=== PATIENT | male | born 1960 | race Caucasian/White ===

== ENCOUNTER 2019-02-03 14:58 | Inpatient (IN) | payer OTHER, SELFPAY ==
[2019-02-03 15:47] LABS: #Basophils 0.1 thou/uL (0.0-0.2); #Eosinphils 0.1 thou/uL (0.0-0.7); #Lymphocytes 2.2 thou/uL (1.20-3.40); #Monocytes 0.8 thou/uL (0.11-0.59); #Neutrophils 5.6 thou/uL (1.40-6.50); %Basophils 1.1 % (0.0-1.0); %Eosinophils 0.6 % (0.0-10.0); %Lymphocytes 24.9 % (21.0-51.0); %Monocytes 9.4 % (0.0-10.0); %Neutrophils 63.9 % (42.0-75.0); Hemoglobin 15.9 g/dL (14.0-18.0); Mean Corpuscular HGB CONC 34.9 g/dL (32.0-36.0); Mean Corpuscular Hemoglobin 32.8 pg (27.0-31.0); Mean Corpuscular Volume 94.1 fL (78.0-98.0); Mean Platelet Volume 7.4 fL (7.4-10.4); Platelet Count 244 thou/uL (130-400); RBC Distribution Width 10.8 % (11.5-14.5); Red Blood Cell (RBC) Count 4.84 mill/uL (4.70-6.10); White Blood Cell (WBC) Count 8.7 thou/uL (4.8-10.8)
[2019-02-03] MEDS ORDERED: Ondansetron PF 4 MG/2 ML Vial ONE ×3 (15:51→19:32)
[2019-02-03 16:06] LABS: ALT (SGPT) 48 U/L (8-55); AST (SGOT) 25 U/L (5-34); Albumin 4.3 g/dL (3.5-5.0); Alkaline Phosphatase 56 U/L (40-110); Anion Gap 16 mmol/L (10-20); BUN (Urea Nitrogen) 12 mg/dL (8.4-25.7); Bilirubin, Total 0.9 mg/dL (0.2-1.2); Calc. Creatinine Clearance 0 mL/min (70-130); Calcium 9.1 mg/dL (7.8-10.44); Carbon Dioxide 20 mmol/L (22-29); Chloride 103 mmol/L (98-107); Estimated GFR-MDRD 87; Globulin 2.6 g/dL (2.4-3.5); Glucose 90 mg/dL (70-105); Lipase 17 U/L (8-78); Potassium 4.5 mmol/L (3.5-5.1); Protein, Total 6.9 g/dL (6.0-8.3); Sodium 134 mmol/L (136-145)
[2019-02-03] MEDS ORDERED: Iopamidol-370 76% 500 ML 1 ML ONE (16:35)
--- NOTE | 2019-02-03 18:41 | CT ---
CT ABDOMEN AND PELVIS WITH IV CONTRAST: HISTORY: Abdominal pain FINDINGS: There are mild dependent changes in the lung bases. No free air is seen. There is a small amount of f ree fluid in the pelvis. No lymphadenopathy seen. There are vascular calcifications without evidence of aneurysmal dilatation of the abdominal aorta. No calcified gallstones are seen. There are degenerative changes in the spine. There is a 5 mm low-density lesion in the right lobe of the liver, too small to characterize. The spl een, pancreas, adrenal glands and kidneys are normal. There is dilatation of the small bowel loops. There is fecal material, air and fluid in the colon. Th ere is sigmoid diverticulosis. A small hiatal hernia is present. IMPRESSION: 1. Findings are suspicious for small bowel obstruction. 2. Small hiatal hernia 3. Sigmoid diverticulosis 4. Small amount of free fluid in the pelvis 5. Small low-density lesion in the right lobe of the liver.
[2019-02-03] MEDS ORDERED: Benzocaine 20% Spray 60 ML CAN ONE (18:58)
[2019-02-03] MEDS ORDERED: hydrALAZINE 20 MG/ML VIAL SLOW IVP PRN (19:52)
--- NOTE | 2019-02-03 20:01 | RAD ---
Abdomen one view HISTORY: Nasogastric tube placement FINDINGS: The tip of the nasogastric tube is in the projection of the GE junction just below the diaphragm. Air is noted in loops of small and large bowel.
[2019-02-03] MEDS ORDERED: Fentanyl 100 MCG/2 ML VIAL ONE (20:42)
[2019-02-03] MEDS: Multivitamins, Adult 10 ML, Folic Acid 1 MG, Thiamine HCl 100 MG in Dextrose 5 %-0.45 %... IV SCH (22:35)
[2019-02-03] MEDS: Dextrose 5 % And 0.9 % NaCl 1,000 ML IV SCH (22:35)
[2019-02-03] MEDS: Enoxaparin Sodium 40 MG/0.4 ML SYRINGE SC SCH (22:39)
[2019-02-03 23:18] VITALS: BMI 22.2
--- NOTE | 2019-02-04 01:10 | HP ---
HISTORY OF PRESENT ILLNESS: Solo Cortes is a 58-year-old male who works in [employer], presents with a 2-3 week history of abdominal discomfort. The last few days he has been nauseated, but not vomiting. He presents to the emergency room. CAT scan reveals dilated small bowel loops with air-fluid levels, small hiatal hernia, sigmoid diverticulosis. They are suggesting a partial bowel obstruction without definite transition zone. The patient dropped a bumper on his abdomen 2 weeks ago causing some bruising, he attributes this to this problem. The patient denies any prior history of colon cancer, and he has never had a colonoscopy. Tobacco 2-3 packs per day. Alcohol 1-6 packs a day, sometimes more on weekends. MEDICATIONS: None routinely. PAST SURGICAL HISTORY: Noncontributory. PAST MEDICAL HISTORY: Noncontributory. SOCIAL HISTORY: The patient is single, has been and 3 times. PHYSICAL EXAMINATION: VITAL SIGNS: Blood pressure 130/68, respiratory rate 18. HEAD, EARS, EYES, NOSE, AND THROAT: Unremarkable. LUNGS: Clear to auscultation. No wheezing. CARDIAC: Regular rate and rhythm without murmur or gallop. ABDOMEN: Soft, mildly distended, mildly tympanitic. No guarding. No rebound. No hernia masses. No groin hernias. EXTREMITIES: Unremarkable. LABORATORY DATA: Sodium 134, potassium 4.5, carbon dioxide 20, bilirubin 0.9. Liver function tests normal. White count 8.7, hemoglobin 15.9. ASSESSMENT AND PLAN: 1. No prior history of abdominal surgeries with distended small bowel. We will place an NG tube tonight. We will check x-rays tomorrow and small-bowel follow-through and further recommendations pending clinical course. 2. Tobacco abuse. 3. Alcoholism. Job ID: [id number]
[2019-02-04 04:09] LABS: #Lymphocytes 1.8 thou/uL (1.20-3.40); #Monocytes 0.9 thou/uL (0.11-0.59); #Neutrophils 5.9 thou/uL (1.40-6.50); %Basophils 0.3 % (0.0-1.0); %Eosinophils 0.1 % (0.0-10.0); %Lymphocytes 21.2 % (21.0-51.0); %Monocytes 10.1 % (0.0-10.0); %Neutrophils 68.3 % (42.0-75.0); Hemoglobin 14.7 g/dL (14.0-18.0); Mean Corpuscular HGB CONC 34.6 g/dL (32.0-36.0); Mean Corpuscular Hemoglobin 32.5 pg (27.0-31.0); Mean Corpuscular Volume 93.9 fL (78.0-98.0); Mean Platelet Volume 7.4 fL (7.4-10.4); Platelet Count 245 thou/uL (130-400); RBC Distribution Width 10.8 % (11.5-14.5); Red Blood Cell (RBC) Count 4.51 mill/uL (4.70-6.10); White Blood Cell (WBC) Count 8.7 thou/uL (4.8-10.8)
[2019-02-04 05:02] LABS: ALT (SGPT) 38 U/L (8-55); AST (SGOT) 19 U/L (5-34); Albumin 3.9 g/dL (3.5-5.0); Alkaline Phosphatase 48 U/L (40-110); Anion Gap 13 mmol/L (10-20); BUN (Urea Nitrogen) 11 mg/dL (8.4-25.7); Bilirubin, Total 0.7 mg/dL (0.2-1.2); Calc. Creatinine Clearance 88 mL/min (70-130); Calcium 8.6 mg/dL (7.8-10.44); Carbon Dioxide 22 mmol/L (22-29); Chloride 104 mmol/L (98-107); Estimated GFR-MDRD 85; Globulin 2.2 g/dL (2.4-3.5); Glucose 132 mg/dL (70-105); Protein, Total 6.1 g/dL (6.0-8.3); Sodium 135 mmol/L (136-145)
[2019-02-04] MEDS: Dextrose 5 % And 0.9 % NaCl 1,000 ML IV SCH ×3 (05:29→16:59)
[2019-02-04] MEDS ORDERED: Acetaminophen 1,000 MG in Premix Bag 1 BAG IVPB PRN (06:55)
[2019-02-04] MEDS: Pantoprazole 40 MG VIAL IVP SCH (08:43)
--- NOTE | 2019-02-04 09:19 | RAD ---
ONE VIEW CHEST TWO VIEWS ABDOMEN: FINDINGS: Chest one view: Normal cardiac silhouette. Lungs and pleural spaces are clear. Note is made of a nasogastric tube ter minating in the epigastric region. Two views abdomen: Multiple air-filled distended loops of small bowel. Paucity of gas in the colon. There may still be s ome fecal material and air in the left hemicolon, down to level of rectum. No pneumoperitoneum. IMPRESSION: 1. Partial small bowel obstruction. 2. No acute cardiopulmonary process. Transcribed Date/Time: 02/04/2019 9:34 AM
[2019-02-04] MEDS: Ondansetron PF 4 MG/2 ML Vial IVP PRN ×2 (10:00→20:24)
[2019-02-04] MEDS: Ketorolac Tromethamine 30 MG/ML VIAL IVP PRN (13:17)
--- NOTE | 2019-02-04 13:32 | RAD ---
Small bowel series: 02/04/2019 HISTORY: 58-year-old male with small bowel obstruction. Dr. Ricardo discussed the suspicion for colon cancer of the descending colon by telephone with Dr. Bert Barclay at 1:27 PM on 02/04/2019. FINDINGS: NG tube with distal tip at gastric fundus. Gastrografin injected into NG tube. Stomach decompressed. Large amount of bowel gas throughout small intestine and colon. Contrast progresses through multiple dilated small bowel loops, and reaches the right hemicolon by 4 hours. Constricting apple co re lesion at descending colon. IMPRESSION: 1. No high-grade small bowel obstruction. 2. Highly suspicious for colon cancer at descending colon.
[2019-02-04 14:36] LABS: Prothrombin Time 13.6 SEC (12.0-14.7)
[2019-02-04] MEDS ORDERED: GoLYTELY 4,000 ml Bottle PO SCH (15:45)
[2019-02-04] MEDS ORDERED: Diazepam 5 MG TAB PO PRN (16:06)
--- NOTE | 2019-02-04 16:14 | CON ---
DATE OF CONSULTATION: 02/04/2019 REASON FOR CONSULTATION: Abnormal GI imaging with possible descending colon mass. CONSULTING PROVIDER: Dr. Chase Barclay. HISTORY OF PRESENT ILLNESS: The patient is a 58-year-old male with no significant past medical history, who initially presented with complaints of abdominal discomfort. He states that approximately 2 to 3 weeks ago, he began having increased left upper quadrant/mid-epigastric abdominal pain characterized as a twisting/pressure type sensation, would radiate to the periumbilical and right lower quadrant, was intermittent and reached a severity of 7/10. This was associated with increased early satiety, nausea, regurgitation, and subjective chills. With worsening of these symptoms over the last week, it prompted him to seek healthcare assistance at the [facility]. While in the ER, he had a CT scan that revealed multiple dilated small bowel loops with air-fluid levels concerning for a possible small bowel obstruction. However, he underwent small bowel follow through on February 04, 2019, which showed passage of the contrast into the colon within 4 hours, but also a possible apple core lesion within the descending colon concerning for a colonic malignancy. At this time, he states that he is doing better with an NG tube in place with decreased nausea and vomiting. However, he does continue to still have left lower quadrant and mid-epigastric abdominal pain that is unchanged from previous. Currently, he denies any vomiting, fevers, hematemesis, melena, hematochezia, dysphagia, or odynophagia. REVIEW OF SYSTEMS: A 10-category review of systems was obtained with all responses negative except for the pertinent positives as listed in HPI. PAST MEDICAL HISTORY: None. PAST SURGICAL HISTORY: None. FAMILY HISTORY: Denies any GI malignancies. SOCIAL HISTORY: Drinks approximately one six-pack beer daily with more on weekends. Smokes approximately 2 to 3 packs per day, but denies any illicit drug use. OUTPATIENT MEDICATIONS: None. ALLERGIES: NO KNOWN DRUG ALLERGIES. PHYSICAL EXAMINATION: VITAL SIGNS: Temperature 97.6, pulse 76, blood pressure 146/95, respiratory rate 16, and saturating 96% on room air. GENERAL: The patient was lying in bed, in no acute distress. Alert and oriented x4. NG tube in place with clear fluid in the suction canister. HEENT: Normocephalic and atraumatic. NECK: Supple. No JVD or scleral icterus noted. CARDIOVASCULAR: Regular rate and rhythm with no discernible murmurs, gallops, or rubs. RESPIRATORY: Clear to auscultation bilaterally with no discernible wheezes or rales. ABDOMEN: Normoactive bowel sounds, but with a mild high pitch character to some of them. Soft. Mild abdominal distension that was tympanic to percussion. Tenderness to palpation in the left mid abdomen and left upper quadrant. EXTREMITIES: No cyanosis, clubbing, or edema. LABORATORY DATA: CBC with a white blood cell count of 8.7, hemoglobin 14.7, hematocrit 42.4, and platelets 245. Chemistry with a sodium of 135, potassium 4, chloride 104, CO2 of 22, BUN 11, creatinine 0.92, and glucose 132. AST 19, ALT 38, alkaline phosphatase 48, and total bilirubin 0.7. CEA of 1.09. Lipase 17. INR 1.0. IMAGING DATA: CT of the abdomen and pelvis was obtained on February 03, 2019, which showed dilatation of multiple small bowel loops suspicious for partial small bowel obstruction, but no evidence of transition point. Also noted was sigmoid diverticulosis. Small bowel follow through obtained on February 04, 2019, showed contrast within the colon at approximately 4 hours after ingestion with the appearance of a possible apple core lesion within the descending colon. ASSESSMENT AND PLAN: The patient is a 58-year-old male with past medical history of tobacco abuse and alcohol abuse, presenting with left-sided/periumbilical abdominal pain and abnormal GI imaging concerning for a colonic mass/malignancy. Abnormal imaging/possible colonic malignancy. The patient is presenting with 2 to 3-week history of left mid abdomen/mid-epigastric abdominal pain characterized as a twisting/pressure type sensation that has been worsening over the same time. Upon evaluation in the ER, he was noted to have multiple dilated small bowel loops on CT concerning for a partial small bowel obstruction with no transition point. However, small bowel follow through obtained today showed no evidence of bowel obstruction, but did show the appearance of an apple core lesion within the descending colon concerning for a colonic malignancy. At this point, if he has a larger mass within the colon, it could potentially generate an obstructive-type process. However, the patient did have a bowel movement yesterday and is currently passing gas indicating that it is probably partially obstructed and may be amenable to colonoscopy prep. RECOMMENDATIONS: 1. We would keep the patient n.p.o. with NG tube in place for now in light of possible impending bowel obstruction. 2. We would administer GoLYTELY prep tonight through the NG tube in anticipation of the colonoscopy tomorrow. 3. We will plan for intraluminal evaluation with colonoscopy tomorrow for possible colonic malignancy contributing to his current constellation of symptoms. 4. We will continue to follow. Please call with any questions. Job ID: [id number]
[2019-02-04] MEDS ORDERED: Thiamine HCl 200 MG/2 ML VIAL IM SCH (16:15)
[2019-02-04] MEDS ORDERED: Diazepam 5 MG TAB PO SCH (16:15)
--- NOTE | 2019-02-04 16:25 | PRG ---
DATE OF SERVICE: 02/04/2019 SUBJECTIVE: Solo Cortes has small-bowel follow-through today revealing absence of a high-grade bowel obstruction. Contrast reaches the right hemicolon by 4 hours. Review of his CAT scan by Dr. Jossue Ricardo, radiologist interprets probable apple-core lesion in the descending colon. I have called Dr. Kike Toledo to see him in consultation for colonoscopy. We will leave his NG tube to facilitate GoLYTELY prepping. His CEA level has been obtained and is normal. He is not anemic. Echocardiogram reveals 60% to 65% ejection fraction, normal LV function, and no significant valvular disease. OBJECTIVE: LUNGS: Clear to auscultation. CARDIAC: Regular rate and rhythm without murmur or gallop. ABDOMEN: Soft. Mildly distended. EXTREMITIES: Unremarkable. ASSESSMENT AND PLAN: 1. Suspect descending colon tumor. Await colonoscopy evaluation. Likely, to require operation in this hospitalization. 2. Alcoholism. Continue delirium tremens prophylaxis, vitamin replacement. 3. Tobacco abuse. Job ID: [id number]
[2019-02-04] MEDS ORDERED: MD-Gastroview 120 ML BOT ONE (17:01)
[2019-02-04] MEDS: Multivitamins, Adult 10 ML, Folic Acid 1 MG, Thiamine HCl 100 MG in Dextrose 5 %-0.45 %... IV SCH (20:15)
[2019-02-04] MEDS: Enoxaparin Sodium 40 MG/0.4 ML SYRINGE SC SCH (20:15)
[2019-02-05] MEDS: Dextrose 5 % And 0.9 % NaCl 1,000 ML IV SCH ×5 (01:28→21:12)
[2019-02-05] MEDS ORDERED: Diazepam 5 MG TAB PO PRN (04:00)
[2019-02-05] MEDS: Thiamine 100 MG TAB PO SCH (07:50)
[2019-02-05] MEDS: Magnesium Oxide 400 MG TAB PO SCH (07:50)
[2019-02-05] MEDS: Folic Acid 1 MG TAB PO SCH (07:50)
[2019-02-05] MEDS: Pantoprazole 40 MG VIAL IVP SCH (08:11)
[2019-02-05] MEDS ORDERED: Multivitamin W/ Minerals 1 TAB PO SCH (09:00)
[2019-02-05] MEDS ORDERED: Fleet Enema 133 ML BOT PR SCH (10:00)
[2019-02-05] MEDS ORDERED: PROPOFOL 200 MG/20 ML VIAL ONE (10:10)
[2019-02-05] MEDS ORDERED: Iopamidol-370 76% 500 ML 1 ML ONE (11:07)
--- NOTE | 2019-02-05 14:25 | OP ---
DATE OF PROCEDURE: 02/05/2019 PROCEDURES PERFORMED: Colonoscopy with biopsy, polypectomy, and submucosal injection. INDICATION FOR PROCEDURE: Abnormal GI imaging showing a possible descending colonic malignancy, colonic obstruction. DESCRIPTION OF PROCEDURE: After the risks and benefits of the procedure were explained to the patient including risks of bleeding, infection, perforation, reactions to anesthesia, aspiration and/or pain, informed consent was obtained. The patient was then taken to the endoscopy suite, where he was placed in the left lateral decubitus position, followed by introduction of propofol via Anesthesia support. Once adequate sedation was achieved, a digital rectal examination was performed followed by introduction of the standard colonoscope, which was then advanced to the mid descending colon with further progress unable to be achieved due to obstructive colonic mass. The mass occupied 95% to 100% of the colonic lumen and I was unable to traverse the mass itself. The quality of the prep was fair with inadequate visualization for polyps less than 5 mm in size. The patient tolerated the procedure well with no immediate perioperative complications. Upon conclusion of the procedure, all equipment was removed from the patient and he was transferred to PACU in satisfactory condition. FINDINGS: Digital rectal exam normal findings were seen on external examination. Colon findings a [id number] amount of retained liquid stool was seen throughout the left colon limiting visualization somewhat, so that, lesions less than 5 mm in size could have been missed. However, it was sufficient to evaluate for gross mucosal lesions at around 40 cm past the anal verge, a large obstructive colonic mass was seen that was unable to be traversed by the colonoscope. Attempts to find the colonic lumen were also unsuccessful. Multiple biopsies were taken from this lesion and placed in a specimen jar for evaluation. Submucosal injection x3 was then placed as part of tattoo placement for future reference for surgical resection. These tattoos were placed on the distal end of the mass. Two additional polyps measuring 3 to 5 mm in size were seen in the descending colon and completely removed with snare cautery polypectomy. Scattered small to medium-sized diverticula were seen in the sigmoid colon. Two additional polyps, one measuring 6 mm and the other measuring 12 mm were seen in the rectum and completely removed with snare cautery polypectomy. The mucosal defect made by the larger polyp with a higher risk for post polypectomy bleed. So, hemoclip x1 was placed over the mucosal defect with good hemostasis achieved. Small internal hemorrhoids were seen on rectal retroflexion. IMPRESSION: 1. Large obstructive descending colon mass consistent with colonic malignancy status post biopsies and tattoo placement. 2. Two 3 to 5 mm descending colon polyp status post snare cautery polypectomy. 3. Two rectal polyps measuring 6 mm and 12 mm status post snare cautery polypectomy with hemoclip placement x1 over the larger mucosal defect. 4. Small internal hemorrhoids. RECOMMENDATIONS: 1. We will follow up on the biopsy results and would repeat the colonoscopy in the next 6 to 12 months for evaluation of synchronous lesions. 2. We will defer to General Surgery Service for surgical resection of the descending colon mass. 3. Pain control per primary team. 4. Would maintain n.p.o. status for now, or clear liquid diet with NG tube suction, given the obstructive nature of the colonic mass. 5. Would avoid anticoagulation for at least the next 24 to 48 hours given the polyps removed today. 6. Would perform staging imaging for possible metastatic disease and would consult Medical Oncology if present. We will sign off at this time. Please call with any additional questions. Job ID: [id number]
--- NOTE | 2019-02-05 16:50 | CT ---
CT THORAX WITH IV CONTRAST: Indication: History of colon mass, concern for possible metastatic disease of the thorax. Comparison: CT abdomen, 02-03-19. FINDINGS: There is no suspicious pulmonary nodules demonstrated. There are areas of subsegmental volume loss in volving both lower lobes likely related to depth of inspiration. There is a gastric catheter projecti ng into the gastric body. No pathologically enlarged lymph nodes are evident. No axillary lymph nodes are noted. Visualized upper abdomen demonstrate persistent dilated loops of bowel within the upper a bdomen. No suspicious osteolytic or osteoblastic lesion is identified involving the osseous structure s. There is a superior endplate compression abnormality seen at C7. IMPRESSION: No evidence of metastatic disease in the thorax. POS: [facility]
[2019-02-05] MEDS ORDERED: Meropenem 2 GM in Sodium Chloride 0.9% 100 ML IVPB SCH (20:00)
--- NOTE | 2019-02-05 20:45 | PRG ---
DATE OF SERVICE: 02/05/2019 SUBJECTIVE: Solo Cortes had a colonoscopy today revealing the obstructive descending colon mass. He has not passed any flatus or stool. NG tube overnight has put out 300. Laboratories done this morning. CEA level 1. Comprehensive metabolic profile yesterday normal. OBJECTIVE: LUNGS: Clear to auscultation. CARDIAC: Regular rate and rhythm without murmur or gallop. ABDOMEN: Soft, mild tenderness, mild distention. ASSESSMENT/PLAN: 1. Obstructing descending colon tumor mass high grade. Plan colon resection Tuesday as tomorrow operating room schedule is too busy. He is at risk for having an open procedure due to his partial obstruction. He understands the risks of infection, bleeding, reoperation, anastomotic leakage, and consents. 2. Alcoholism. 3. Tobacco abuse. Job ID: [id number]
[2019-02-05] MEDS: Multivitamins, Adult 10 ML, Folic Acid 1 MG, Thiamine HCl 100 MG in Dextrose 5 %-0.45 %... IV SCH (21:14)
[2019-02-05] MEDS: Ketorolac Tromethamine 30 MG/ML VIAL IVP PRN (21:24)
[2019-02-06] MEDS: Dextrose 5 % And 0.9 % NaCl 1,000 ML IV SCH ×2 (06:03→17:23)
--- NOTE | 2019-02-06 08:45 | RAD ---
XR Abdomen 2 View History: Abdominal distention.: Mass Comparison: CT examination February 03, 2019 Findings: 13 to be dilated loops of large and small bowel. An enteric tube is in place with tip at th e gastric fundus. Impression: Enteric tube tip in the gastric fundus with continued large and small bowel dilatation.
[2019-02-06] MEDS: Folic Acid 1 MG TAB PO SCH (09:15)
[2019-02-06] MEDS: Magnesium Oxide 400 MG TAB PO SCH (09:15)
[2019-02-06] MEDS: Multivitamin W/ Minerals 1 TAB PO SCH (09:17)
[2019-02-06] MEDS: Pantoprazole 40 MG VIAL IVP SCH (09:17)
[2019-02-06] MEDS ORDERED: Ketorolac Tromethamine 30 MG/ML VIAL IVP SCH (17:00)
[2019-02-06] MEDS ORDERED: Acetaminophen 1,000 MG in Premix Bag 1 BAG IVPB SCH (17:00)
--- NOTE | 2019-02-06 17:05 | PRG ---
DATE OF SERVICE: 02/06/2019 SUBJECTIVE: Solo Cortes is doing well today. NG tube has had minimal output 90 to 100. OBJECTIVE: VITAL SIGNS: Temperature 98.6 degrees, pulse 85, blood pressure 122/80. LUNGS: Clear to auscultation. CARDIAC: Regular rate and rhythm without murmur or gallop. ABDOMEN: Soft, mildly distended, mild tympany. Nontender. LABORATORY DATA: White count 8, hemoglobin 14. Electrolytes unremarkable. DIAGNOSTIC DATA: X-rays abdomen today revealed air-fluid levels in the proximal colon. NG tube in proper position. Biopsies from the descending colon mass from 02/05/2019, reveals adenocarcinoma. ASSESSMENT AND PLAN: Descending colon, obstructive adenocarcinoma. Plan laparoscopic plus open resection tomorrow. He understands risks and benefits of the procedure and consents. We will plan general anesthesia and TAP block. Continue alcoholism. DVT prophylaxis and vitamin replacement. Job ID: [id number]
[2019-02-06] MEDS: Thiamine 100 MG TAB PO SCH (17:23)
[2019-02-06] MEDS: Ketorolac Tromethamine 30 MG/ML VIAL IVP PRN (17:59)
[2019-02-07] MEDS: Lorazepam 2 MG/ML VIAL SLOW IVP PRN ×2 (03:11→23:11)
[2019-02-07] MEDS: Ketorolac Tromethamine 30 MG/ML VIAL IVP PRN ×2 (03:11→19:45)
[2019-02-07] MEDS: Dextrose 5 % And 0.9 % NaCl 1,000 ML IV SCH ×4 (05:23→23:11)
[2019-02-07] MEDS: Thiamine 100 MG TAB PO SCH (08:38)
[2019-02-07] MEDS: Folic Acid 1 MG TAB PO SCH (08:38)
[2019-02-07] MEDS: Magnesium Oxide 400 MG TAB PO SCH (08:38)
[2019-02-07] MEDS: Multivitamin W/ Minerals 1 TAB PO SCH (08:38)
[2019-02-07] MEDS: Pantoprazole 40 MG VIAL IVP SCH (08:40)
[2019-02-07] MEDS ORDERED: Rocuronium Bromide 10 MG/ML (10ML VIAL) ONE (10:04)
[2019-02-07] MEDS ORDERED: PHENYLEPHRINE-NS 100 MCG/ML 10 ML SYRINGE ONE (10:04)
[2019-02-07] MEDS ORDERED: PROPOFOL 200 MG/20 ML VIAL ONE (10:04)
[2019-02-07] MEDS ORDERED: Ondansetron PF 4 MG/2 ML Vial ONE (10:04)
[2019-02-07] MEDS ORDERED: Calcium Chloride 1 GM/10 ML Abboject SYRINGE ONE (10:04)
[2019-02-07] MEDS ORDERED: Lidocaine 1% PF 5 ML VIAL ONE (10:04)
[2019-02-07] MEDS ORDERED: Glycopyrrolate 0.2 MG/ML 5 ML SYRINGE ONE (10:04)
[2019-02-07] MEDS ORDERED: Bupivacaine HCl 0.5%/Epinephrine 1:200,000/PF 30 ml Vial ONE (10:04)
[2019-02-07] MEDS ORDERED: Ketorolac Tromethamine 30 MG/ML VIAL ONE (11:02)
[2019-02-07] MEDS ORDERED: Fentanyl 100 MCG/2 ML VIAL ONE ×2 (11:51→13:23)
[2019-02-07] MEDS ORDERED: Midazolam HCl 2 mg/2 ml Vial ONE (13:23)
[2019-02-07] MEDS ORDERED: Ondansetron HCl/PF 4 MG/2 ML Vial IVP PRN (14:10)
[2019-02-07] MEDS ORDERED: Ketorolac Tromethamine 30 MG/ML VIAL IVP PRN (16:25)
[2019-02-07] MEDS ORDERED: Acetaminophen 1,000 MG in Premix Bag 1 BAG IVPB PRN (16:25)
[2019-02-07] MEDS ORDERED: Meropenem 2 GM, Admixture Fee 1 EACH in Sodium Chloride 0.9% 100 ML IVPB SCH (18:00)
[2019-02-07] MEDS: Ketorolac Tromethamine 30 MG/ML VIAL IVP SCH ×2 (18:26→23:12)
[2019-02-07] MEDS: Acetaminophen 1,000 MG in Premix Bag 1 BAG IVPB SCH ×2 (18:26→23:13)
[2019-02-07] MEDS: Meropenem 2 GM, Admixture Fee 1 EACH in Sodium Chloride 0.9% 100 ML IVPB SCH (19:50)
--- NOTE | 2019-02-07 22:54 | OP ---
DATE OF PROCEDURE: 02/07/2019 PREOPERATIVE DIAGNOSES: Obstructing descending colon cancer, alcoholism, tobacco abuse 2-3 packs per day, poor intention. PROCEDURES PERFORMED: Laparoscopy converted open to laparotomy due to small bowel distention and lack of working space. Mobilization of the transverse colon, splenic flexure, descending colon with left colectomy and colorectal anastomosis. Initial EEA 33 failed and sutured anastomosis completed. Protective ileostomy. #19 gold ROSIO drain. Omental pedicle flap around the anastomosis. ANESTHESIA: General. ESTIMATED BLOOD LOSS: 200 mL. BLOOD TRANSFUSED: None. FINDINGS: The patient had obstructing descending colon lesion. His proximal colon was distended and full of stool. Small bowel was markedly distended and intraoperatively once the laparotomy was performed, the small bowel was milked retrograde filling 2 canisters of enteric contents with NG tube evacuation. DESCRIPTION OF PROCEDURE: The patient was taken to the operating room, where under dorsal lithotomy position under general anesthesia and TAP block, his abdomen was prepared with ChloraPrep and draped in routine fashion, Wu catheter in place. Right periumbilical incision made. Pneumoperitoneum to 15 mmHg was obtained with a Veress needle, replaced with a 5 port, video laparoscope inserted. There was too much small bowel distention due to proceed laparoscopically, thus open laparotomy made. This required a longer incision than usual due to the bowel distention. Small bowel was milked retrograde and NG tube decompressing the small bowel enabling space to work. Approximately 3 L of enteric content evacuated, NG tube palpated in good position. Bookwalter was used for exposure. Omentum taken down from the transverse colon and splenic flexure using the cautery and LigaSure. Left colon mobilized, sigmoid colon mobilized identifying the ureter keeping it free of harm. Dissection was carried down to the pelvis keeping the ureter free of harm and the upper rectum divided with a contour stapler. The inferior mesenteric artery divided between clamps, ligated with 2-0 silk ties. The superior hemorrhoidal resected en bloc. The descending colon lesion had been resected and the left colon had been mobilized from Gerota's fascia and the splenic flexure as described taken down. The colon reached easily without tension into the pelvis. Just proximal to the colon, the abdominal wall was walled off and the colon placed in a basin and an opening made in the colon decompressed of enteric contents and then colon divided proximally and a pursestring suture of 2-0 Prolene circumferentially placed and a 33 EEA anvil placed and a pursestring suture tired around the anvil. The EEA stapler was advanced up the rectal stump and once it was fired, there was leakage of stool and at this point, the proximal colon was clamped in the staple line and few centimeters of proximal colon and few centimeters of rectum excised. Proximal colon and rectum were evacuated anastomosis undertaken interrupted sutures of 2-0 silk, interrupted continuous locking suture of 2-0 Vicryl. The anterior seromuscular layer was placed once the Vicryl was placed and then anastomosis completed. Abdominal cavity thoroughly irrigated, irrigant evacuated, hemostasis noted. Considering the patient is obstructed and unprepped and a 2-3 pack-a-day smoker and alcoholic, it was decided best to be performed a protective ileostomy. Abdominal cavity irrigated with 3 L of saline solution, irrigant evacuated, hemostasis noted. Ureter was kept free of harm as noted, urine was clear. A 19 gold ROSIO drain brought out through the left lateral abdominal wall stab incision, secured with 3-0 nylon suture and placed in the pelvis after omental pedicle flap was wrapped around the anastomosis. Once this was in place, approximately 10 inches from the ileocecal valve, the small bowel was divided with a MIKE stapler and mesentery divided a short distance with a LigaSure and the proximal ileum brought out through a circular skin defect that had been created by excising the skin and subcutaneous tissue and a cruciate incision was made in the anterior fascia, rectus muscle split, and the ileum brought out. Our gloves were changed and Seprafilm applied. Midline fascia closed with continuous suture of #1 PDS. The sponge, instrument, and needle counts were correct. Skin was irrigated copiously. Good hemostasis obtained. Skin was approximated loosely with maria t and a JAIME drain suction device applied. The sterile dressing placed over the drain site on the left abdomen. The ileostomy was matured by excising the staple line, putting four quadrant sutures of 3-0 Vicryl and simple sutures of 3-0 Vicryl with complete maturation. Ileostomy appliance applied over stoma paste. The patient tolerated the procedure well. Job ID: [id number]
[2019-02-08] MEDS: Lorazepam 2 MG/ML VIAL SLOW IVP PRN ×2 (04:11→22:55)
[2019-02-08] MEDS: Meropenem 2 GM, Admixture Fee 1 EACH in Sodium Chloride 0.9% 100 ML IVPB SCH ×3 (04:18→19:44)
[2019-02-08] MEDS: Ketorolac Tromethamine 30 MG/ML VIAL IVP SCH ×2 (05:26→12:57)
[2019-02-08] MEDS: Dextrose 5 % And 0.9 % NaCl 1,000 ML IV SCH ×3 (05:27→23:19)
[2019-02-08] MEDS ORDERED: Pantoprazole 40 MG VIAL IVP SCH (09:00)
[2019-02-08] MEDS: Thiamine 100 MG TAB PO SCH (09:20)
[2019-02-08] MEDS: Multivitamin W/ Minerals 1 TAB PO SCH (09:20)
[2019-02-08] MEDS: Pantoprazole 40 MG VIAL IVP SCH (09:20)
[2019-02-08] MEDS: Acetaminophen 1,000 MG in Premix Bag 1 BAG IVPB SCH ×2 (09:21→12:57)
[2019-02-08] MEDS: Folic Acid 1 MG TAB PO SCH (09:21)
[2019-02-08] MEDS ORDERED: traMADol HCl 50 MG TAB PO PRN ×2 (14:20)
[2019-02-08] MEDS ORDERED: Ibuprofen 600 MG TAB PO PRN (14:20)
[2019-02-08] MEDS ORDERED: Acetaminophen 500 MG TAB PO PRN (14:20)
[2019-02-08] MEDS: Gabapentin 300 MG CAP PO SCH ×2 (14:56→19:44)
--- NOTE | 2019-02-08 14:56 | PRG ---
DATE OF SERVICE: 02/08/2019 SUBJECTIVE: Solo Cortes is doing well today, one day postop laparoscopic converted to open laparotomy due to small bowel distention. He underwent left splenic flexure mobilization, distal transverse colon mobilization, left colon mobilization, left colon resection for resection of a descending colon cancer obstructing. The patient had a 33 mm EEA stapled anastomosis that failed and had to be redone and hand-sewn anastomosis performed in a protective ileostomy form. He has a drain which is serosanguineous output. His urine output has been adequate 700 mL for 24 hours. His white count is 8, this morning hemoglobin 14.7. Basic metabolic profile is normal. Sodium 135. OBJECTIVE: LUNGS: Clear to auscultation. CARDIAC: Regular rate and rhythm. No murmur or gallop. ABDOMEN: Soft, flat, nondistended. Occasional bowel sounds. Gastric drainage overnight, negligible. The NG tube is in proper location. He has output out of his ileostomy. Overall, the patient is doing well. ASSESSMENT AND PLAN: Status post colon resection. Pathology pending. We will remove his NG tube. Advance his diet. Teach him ileostomy care. Arrange ileostomy education and supplies. Anticipate discharge home in 24 to 72 hours. He has a JAIME on that he can remove at home in the next few days. Job ID: [id number]
[2019-02-09] MEDS: Dextrose 5 % And 0.9 % NaCl 1,000 ML IV SCH ×2 (01:35→09:05)
[2019-02-09] MEDS: Meropenem 2 GM, Admixture Fee 1 EACH in Sodium Chloride 0.9% 100 ML IVPB SCH ×3 (04:57→20:39)
[2019-02-09 07:49] LABS: #Eosinphils 0.2 thou/uL (0.0-0.7); #Lymphocytes 1.2 thou/uL (1.20-3.40); #Monocytes 0.9 thou/uL (0.11-0.59); %Basophils 0.1 % (0.0-1.0); %Lymphocytes 7.5 % (21.0-51.0); %Monocytes 5.5 % (0.0-10.0); Hemoglobin 11.7 g/dL (14.0-18.0); Mean Corpuscular HGB CONC 34.4 g/dL (32.0-36.0); Mean Corpuscular Volume 95.8 fL (78.0-98.0); Mean Platelet Volume 7.2 fL (7.4-10.4); Platelet Count 237 thou/uL (130-400); RBC Distribution Width 10.7 % (11.5-14.5); Red Blood Cell (RBC) Count 3.55 mill/uL (4.70-6.10); White Blood Cell (WBC) Count 16.2 thou/uL (4.8-10.8)
[2019-02-09] MEDS: Folic Acid 1 MG TAB PO SCH (08:01)
[2019-02-09] MEDS: Multivitamin W/ Minerals 1 TAB PO SCH (08:01)
[2019-02-09] MEDS: Thiamine 100 MG TAB PO SCH (08:01)
[2019-02-09] MEDS: Pantoprazole 40 MG VIAL IVP SCH (08:01)
[2019-02-09] MEDS: Gabapentin 300 MG CAP PO SCH ×3 (08:01→20:39)
[2019-02-09 08:04] LABS: Anion Gap 7 mmol/L (10-20); BUN (Urea Nitrogen) 9 mg/dL (8.4-25.7); Calc. Creatinine Clearance 104 mL/min (70-130); Calcium 8.2 mg/dL (7.8-10.44); Carbon Dioxide 25 mmol/L (22-29); Chloride 103 mmol/L (98-107); Estimated GFR-MDRD Greater than 90; Glucose 103 mg/dL (70-105); Potassium 3.8 mmol/L (3.5-5.1); Sodium 131 mmol/L (136-145)
--- NOTE | 2019-02-09 10:57 | PRG ---
DATE OF SERVICE: 02/09/2019 SUBJECTIVE: Solo Cortes is doing well today. He is tolerating his diet, although not real hungry, feels full early. He is not on any nausea or vomiting. He has not had fever. OBJECTIVE: VITAL SIGNS: Temperature 99 degrees, pulse 109, blood pressure 109/85. LUNGS: Clear to auscultation. CARDIAC: Regular rate and rhythm without murmur or gallop. ABDOMEN: Soft, flat, nondistended. healthy with significant output. Midline wound covered with a JAIME suction dressing. ROSIO drain serosanguineous, output 64 mL over 24 hours. Urine output significant and voiding spontaneously. Wu removed yesterday. White count 16 and hemoglobin 11.7. Basic metabolic profile is unremarkable. Sodium 131. ASSESSMENT/PLAN: Status post obstructing colon cancer, left colon, pathology pending from the resected specimen. Endoscopic biopsy reveals adenocarcinoma. Await pathology. The patient is tolerating his diet. Expect discharge home tomorrow. His preoperative CEA level and CAT scan were negative. There are no metastasis. The patient is doing well postoperatively and have written prescriptions for him to go home tomorrow. He will follow up in my office after Thanks. He may be sent home with a ROSIO drain, which we will remove next week in the office. Baldomero will be removed after Thanks. Dr. Jenkins is covering over the weekend. Anticipate he will be discharged home tomorrow. He will be instructed on ileostomy care and given ileostomy supplies on outpatient appointment for stoma therapy questions. Meropenem will be discontinued on the day of discharge. Job ID: [id number]
[2019-02-10] MEDS: Lorazepam 2 MG/ML VIAL SLOW IVP PRN (03:30)
[2019-02-10] MEDS: Meropenem 2 GM, Admixture Fee 1 EACH in Sodium Chloride 0.9% 100 ML IVPB SCH (03:30)
[2019-02-10 08:05] VITALS: BP 119/80; TEMP 97.4
[2019-02-10] MEDS: Gabapentin 300 MG CAP PO SCH (08:07)
[2019-02-10] MEDS: Thiamine 100 MG TAB PO SCH (08:07)
[2019-02-10] MEDS: Multivitamin W/ Minerals 1 TAB PO SCH (08:07)
[2019-02-10] MEDS: Folic Acid 1 MG TAB PO SCH (08:08)
--- NOTE | 2019-02-10 09:50 | DIS ---
DATE OF ADMISSION: 02/03/2019 DATE OF DISCHARGE: 02/10/2019 ADMISSION DIAGNOSIS: Obstructing left colon mass. DISCHARGE DIAGNOSIS: Obstructing left colon mass. PROCEDURE: Left colectomy with ileostomy by Dr. Barclay without complication. CONDITION ON DISCHARGE: Improved. STAFF: Dr. Barclay. HOSPITAL COURSE: Postop, the patient's postop course was uneventful. He was slowly advanced to regular diet. On the day of discharge, he has had ostomy teaching. His ROSIO drains put on serosanguineous fluids. We changed the dressings. Prescriptions are on the chart. I recommended the drain stay and then he see Dr. Barclay back on Tuesday for drain removal. Job ID: [id number]
--- NOTE | 2019-02-12 09:47 | PQF ---
AXEL COCHRAN RICHARD D MD [id number] SURG [id number] CLINICAL DOCUMENTATION CLARIFICATION FORM: POST DISCHARGE Addendum to original discharge summary date: ____ Late entry note date: __ DATE:02/12/2019 ATTN:GEORGE GLYNN MD Please exercise your independent, professional judgment in responding to the clarification form. Clinical indicators are provided on the bottom of this form for your review One lymphe node involved by metastatic carcinoma Clarification of Pathology report: Please check appropriate box(s): [ ] Agree w the pathology finding of: [ ] Other explanation of pathology findings (please specify) [ ] Other diagnosis [ ] Unable to determine For continuity of documentation, please document condition throughout progress notes and discharge summary. Thank You. CLINICAL INDICATORS - SIGNS/ SYMPTOMS / LABS One lymphe node involved by metastatic carcinoma (04/13 total lymph nodes) - Documented in path report Obstructing descending colon cancer-Documented in Op note on 02/07 by Deny bill Left colectomy and colorectal anastomosis--Documented in Op note on 02/07 by Deny bill RISK FACTORS Left colectomy and colorectal anastomosis--Documented in Op note on 02/07 by Deny bill Left colectomy and colorectal anastomosis--Documented in Op note on 02/07 by Deny bill [employer] Win[employer] (This form is maintained as a part of the permanent medical record) 2014 [email or web address]. All Rights Reserved [email or web address] [email or web address] [not provided] [email or web address]
== END 2019-02-10 11:15 | disposition home or self-care (01) | DRG 330 ==
LOC: ERS 14:58 → SURG B 19:52
PROVIDERS: ADMIT Specialist; ATTEND Specialist
PROC: 0DBM8ZZ Excision of Descending Colon, Via Natural or Artificial Opening Endoscopic (ICD-10-PCS; 2019-02-05)
PROC: 0DBE8ZX Excision of Large Intestine, Via Natural or Artificial Opening Endoscopic, Diagnostic (ICD-10-PCS; 2019-02-05)
PROC: 0DBM0ZZ Excision of Descending Colon, Open Approach (ICD-10-PCS; principal; 2019-02-07)
PROC: 0DJD4ZZ Inspection of Lower Intestinal Tract, Percutaneous Endoscopic Approach (ICD-10-PCS; 2019-02-07)
DX: C18.6 Malignant neoplasm of descending colon (principal); K56.690 Other partial intestinal obstruction; K63.89 Other specified diseases of intestine; F17.200 Nicotine dependence, unspecified, uncomplicated; F10.20 Alcohol dependence, uncomplicated
CPT/HCPCS: 36415; 36416; 71260; 74018; 74019; 74022; 74177; 74250; 80048; 80053; 82378; 83690; 85025; 85610; 88305; 88309; 88361; 93005; 93306; 96361; 96372; 96374; 96375; 96376; C9113; J0131; J0500; J0670; J1650; J1885; J2001; J2060; J2185; J2250; J2405; J2704; J3010; J3411; J3475; J3490; J7042; Q9963; Q9967

== ENCOUNTER 2024-04-13 16:12 | Emergency (ER) | payer SELFPAY ==
[~2024-04-13 16:12] MED LIST: Iopamidol-370 76% 500 ML MDV (1 ML CHARGE) ONE
[2024-04-13 16:57] LABS: #Basophils 0.08 10x3/uL (0.0-0.2); %Basophils 0.8 % (0.0-1.0); %Lymphocytes 29.8 % (21.0-51.0); %Neutrophils 58.1 % (42.0-75.0); Hematocrit 41.8 % (42.0-52.0); Hemoglobin 14.6 g/dL (14.0-18.0); Mean Corpuscular HGB CONC 34.9 g/dL (32.0-36.0); Mean Corpuscular Hemoglobin 31.5 pg (27.0-31.0); Mean Corpuscular Volume 90.3 fL (78.0-98.0); Mean Platelet Volume 9.9 fL (7.4-10.4); Platelet Count 287 10x3/uL (130-400); Red Blood Cell (RBC) Count 4.63 mill/uL (4.70-6.10)
[2024-04-13 17:13] LABS: ALT (SGPT) 9 U/L (Less than 45); AST (SGOT) 15 U/L (11-34); Albumin 3.9 g/dL (3.1-4.5); Alkaline Phosphatase 82 U/L (40-110); Anion Gap 15 mmol/L (10-20); BUN (Urea Nitrogen) 15 mg/dL (8.4-25.7); Bilirubin, Total 0.5 mg/dL (0.3-1.2); Calc. Creatinine Clearance 0 mL/min (70-130); Calcium 9.6 mg/dL (7.8-10.44); Carbon Dioxide 20 mmol/L (23-31); Chloride 105 mmol/L (98-107); Estimated GFR 82; Glucose 102 mg/dL (80-115); Potassium 4.1 mmol/L (3.5-5.1); Protein, Total 7.7 g/dL (5.8-8.1); Sodium 136 mmol/L (136-145)
[2024-04-13 17:16] LABS: Troponin I 0.012 ng/mL (< 0.028)
[2024-04-13 17:21] LABS: Globulin 3.8 g/dL (2.4-3.5)
[2024-04-13] MEDS ORDERED: Ketorolac Tromethamine 30 MG (1 mL) VIAL ONE (18:19)
== END 2024-04-13 21:05 | disposition home or self-care (01) ==
LOC: ERS 16:12
DX: R91.8 Other nonspecific abnormal finding of lung field (principal); M25.512 Pain in left shoulder; C18.9 Malignant neoplasm of colon, unspecified; F17.210 Nicotine dependence, cigarettes, uncomplicated
CPT/HCPCS: 36415; 71045; 71275; 80053; 83880; 84484; 85025; 93005; 96374; J1885; Q9967

== ENCOUNTER 2024-10-30 11:05 | Observation (INO) | payer OTHER ==
[2024-10-30] MEDS ORDERED: Senokot S 8.6-50 MG TAB PO PRN (11:25)
[2024-10-30] MEDS ORDERED: Acetaminophen 325 MG TAB PO PRN (11:25)
[2024-10-30] MEDS ORDERED: Calcium Carbonate 500 MG ChewTAB PO PRN (11:25)
[2024-10-30 11:32] VITALS: BMI 21.2
[2024-10-30] MEDS ORDERED: Acetaminophen 500 MG TAB PO PRN ×2 (12:01→12:15)
[2024-10-30] MEDS ORDERED: Dexamethasone 10 MG/ML VIAL SLOW IVP PRN (12:03)
[2024-10-30] MEDS ORDERED: SODIUM CHLORIDE 0.9% IV SCH (12:15)
[2024-10-30] MEDS ORDERED: TOCILIZUMAB IV SCH (12:15)
[2024-10-30] MEDS: TOCILIZUMAB IV SCH (14:03)
[2024-10-30] MEDS: SODIUM CHLORIDE 0.9% IV SCH (14:03)
[2024-10-30] MEDS: PNEUMOC 20-VAL CONJ-DIP CRM/PF 0.5 ML SYRINGE IM ONE (14:07)
[2024-10-31] MEDS: Ibuprofen 600 MG TAB PO PRN (00:36)
[2024-10-31] MEDS: Ondansetron PF 4 MG/2 ML Vial IVP PRN (01:18)
[2024-10-31 05:58] LABS: #Basophils Less than 0.03 10x3/uL (0.0-0.2); #Eosinophils Less than 0.03 10x3/uL (0.0-0.7); #Monocytes 0.85 10x3/uL (0.11-0.59); #Neutrophils 10.47 10x3/uL (1.40-6.50); %Basophils 0.1 % (0.0-1.0); %Eosinophils 0.0 % (0.0-10.0); %Lymphocytes 8.6 % (21.0-51.0); %Monocytes 6.8 % (0.0-10.0); %Neutrophils 84.0 % (42.0-75.0); Hematocrit 35.9 % (42.0-52.0); Hemoglobin 12.6 g/dL (14.0-18.0); Mean Corpuscular Hemoglobin 32.4 pg (27.0-31.0); Mean Corpuscular Volume 92.3 fL (78.0-98.0); Platelet Count 289 10x3/uL (130-400); Red Blood Cell (RBC) Count 3.89 mill/uL (4.70-6.10); White Blood Cell (WBC) Count 12.46 10x3/uL (4.8-10.8)
[2024-10-31 06:18] LABS: ALT (SGPT) 27 U/L (Less than 45); AST (SGOT) 46 U/L (11-34); Albumin 3.5 g/dL (3.1-4.5); Alkaline Phosphatase 97 U/L (40-110); Anion Gap 15 mmol/L (10-20); BUN (Urea Nitrogen) 13 mg/dL (8.4-25.7); Bilirubin, Total 0.3 mg/dL (0.3-1.2); Calc. Creatinine Clearance 118 mL/min (70-130); Calcium 9.6 mg/dL (7.8-10.44); Carbon Dioxide 21 mmol/L (23-31); Chloride 105 mmol/L (98-107); Globulin 3.2 g/dL (2.4-3.5); Glucose 126 mg/dL (80-115); Magnesium 1.7 mg/dL (1.6-2.6); Potassium 4.0 mmol/L (3.5-5.1); Sodium 137 mmol/L (136-145)
[2024-10-31 13:46] VITALS: BP 128/83; TEMP 98.9
== END 2024-10-31 13:42 | disposition home or self-care (01) ==
LOC: MSONC 11:05
PROVIDERS: ADMIT Internal Medicine; ATTEND Family Medicine
DX: C34.31 Malignant neoplasm of lower lobe, right bronchus or lung (principal); C78.1 Secondary malignant neoplasm of mediastinum; C78.7 Secondary malignant neoplasm of liver and intrahepatic bile duct; C79.71 Secondary malignant neoplasm of right adrenal gland; Z88.5 Allergy status to narcotic agent
CPT/HCPCS: 36415; 80053; 83735; 85025; G0378; J2405; J7030

== ENCOUNTER 2024-11-06 10:54 | Observation (INO) | payer OTHER ==
[2024-11-06] MEDS ORDERED: Ondansetron PF 4 MG/2 ML Vial IVP PRN (11:00)
[2024-11-06] MEDS ORDERED: Electrolyte Replacement Protocol 1 EACH FS SCH (11:00)
[2024-11-06] MEDS ORDERED: Senokot S 8.6-50 MG TAB PO PRN (11:00)
[2024-11-06] MEDS ORDERED: Calcium Carbonate 500 MG ChewTAB PO PRN (11:00)
[2024-11-06] MEDS ORDERED: Acetaminophen 325 MG TAB PO PRN (11:00)
[2024-11-06] MEDS ORDERED: Acetaminophen 500 MG TAB PO PRN (11:45)
[2024-11-06 12:27] VITALS: BMI 21.1
[2024-11-06] MEDS: Ibuprofen 600 MG TAB PO PRN (19:58)
[2024-11-07 04:49] LABS: #Basophils Less than 0.03 10x3/uL (0.0-0.2); #Eosinophils Less than 0.03 10x3/uL (0.0-0.7); #Monocytes 1.00 10x3/uL (0.11-0.59); #Neutrophils 9.81 10x3/uL (1.40-6.50); %Basophils 0.2 % (0.0-1.0); %Eosinophils 0.0 % (0.0-10.0); %Lymphocytes 7.5 % (21.0-51.0); %Monocytes 8.5 % (0.0-10.0); %Neutrophils 83.0 % (42.0-75.0); Hematocrit 34.6 % (42.0-52.0); Hemoglobin 12.0 g/dL (14.0-18.0); Mean Corpuscular Hemoglobin 32.2 pg (27.0-31.0); Mean Corpuscular Volume 92.8 fL (78.0-98.0); Platelet Count 312 10x3/uL (130-400); Red Blood Cell (RBC) Count 3.73 mill/uL (4.70-6.10); White Blood Cell (WBC) Count 11.81 10x3/uL (4.8-10.8)
[2024-11-07 05:13] LABS: ALT (SGPT) 19 U/L (Less than 45); AST (SGOT) 36 U/L (11-34); Albumin 3.4 g/dL (3.1-4.5); Alkaline Phosphatase 99 U/L (40-110); Anion Gap 13 mmol/L (10-20); BUN (Urea Nitrogen) 22 mg/dL (8.4-25.7); Bilirubin, Total 0.3 mg/dL (0.3-1.2); Calc. Creatinine Clearance 106 mL/min (70-130); Calcium 9.3 mg/dL (7.8-10.44); Carbon Dioxide 20 mmol/L (23-31); Chloride 105 mmol/L (98-107); Globulin 2.7 g/dL (2.4-3.5); Glucose 113 mg/dL (80-115); Potassium 4.1 mmol/L (3.5-5.1); Sodium 134 mmol/L (136-145)
[2024-11-07] MEDS: HYDROcodone/Acetaminophen 10/325 mg Tablet PO PRN (08:16)
[2024-11-07 13:26] VITALS: BP 132/86; TEMP 98.6
[2024-11-07 13:45] VITALS: BMI 21.1
== END 2024-11-07 13:50 | disposition home or self-care (01) ==
LOC: MSONC 10:54
PROVIDERS: ADMIT Internal Medicine; ATTEND Internal Medicine
DX: C7A.8 Other malignant neuroendocrine tumors (principal); C78.1 Secondary malignant neoplasm of mediastinum; C78.7 Secondary malignant neoplasm of liver and intrahepatic bile duct; C79.71 Secondary malignant neoplasm of right adrenal gland; C79.31 Secondary malignant neoplasm of brain; E11.9 Type 2 diabetes mellitus without complications; R62.7 Adult failure to thrive; Z68.21 Body mass index [BMI] 21.0-21.9, adult; Z93.3 Colostomy status; Z87.891 Personal history of nicotine dependence; Z85.038 Personal history of other malignant neoplasm of large intestine; Z88.5 Allergy status to narcotic agent
CPT/HCPCS: 36415; 80053; 85025; G0378; J7030; Q0162

== ENCOUNTER 2024-12-02 20:14 | Inpatient (IN) | payer OTHER ==
[2024-12-02] MEDS ORDERED: Nitroglycerin 2% Ointment 1 INCH/1 GM Packet ONE ×2 (20:32→21:38)
[2024-12-02] MEDS ORDERED: Dexamethasone 10 MG/ML VIAL ONE (20:32)
[2024-12-02] MEDS ORDERED: Magnesium 2 GM/50 ML BAG (IN WATER) ONE (20:32)
[2024-12-02 20:37] LABS: #Basophils 0.08 10x3/uL (0.0-0.2); #Eosinophils Less than 0.03 10x3/uL (0.0-0.7); #Monocytes 1.65 10x3/uL (0.11-0.59); #Neutrophils 19.17 10x3/uL (1.40-6.50); %Basophils 0.3 % (0.0-1.0); %Eosinophils 0.0 % (0.0-10.0); %Lymphocytes 12.7 % (21.0-51.0); %Monocytes 6.7 % (0.0-10.0); %Neutrophils 78.5 % (42.0-75.0); Hematocrit 43.6 % (42.0-52.0); Hemoglobin 14.4 g/dL (14.0-18.0); Mean Corpuscular Hemoglobin 30.5 pg (27.0-31.0); Mean Corpuscular Volume 92.4 fL (78.0-98.0); Platelet Count 331 10x3/uL (130-400); Red Blood Cell (RBC) Count 4.72 mill/uL (4.70-6.10); White Blood Cell (WBC) Count 24.48 10x3/uL (4.8-10.8)
[2024-12-02 20:50] LABS: INR-International Normal Ratio 1.1; Prothrombin Time 14.2 sec (12.0-14.7)
[2024-12-02 20:51] LABS: PTT 32.8 sec (22.9-36.1)
[2024-12-02 20:54] LABS: ALT (SGPT) 26 U/L (Less than 45); AST (SGOT) 77 U/L (11-34); Albumin 3.1 g/dL (3.1-4.5); Alkaline Phosphatase 225 U/L (40-110); Anion Gap 22 mmol/L (10-20); BUN (Urea Nitrogen) 17 mg/dL (8.4-25.7); Bilirubin, Total 0.5 mg/dL (0.3-1.2); Calc. Creatinine Clearance 0 mL/min (70-130); Calcium 11.5 mg/dL (7.8-10.44); Carbon Dioxide 22 mmol/L (23-31); Chloride 100 mmol/L (98-107); Globulin 4.0 g/dL (2.4-3.5); Glucose 120 mg/dL (80-115); Magnesium 2.2 mg/dL (1.6-2.6); Potassium 4.1 mmol/L (3.5-5.1); Sodium 140 mmol/L (136-145)
[2024-12-02 21:05] LABS: Actual Bicarbonate (HCO3v) 20.1 mEq/L (22-28); Base Excess -2.8 mEq/L (-2.0 to +3.0); Calcium, Ionized (venous) 1.26 mmol/L (1.16-1.32); Chloride (VBG) 102 mmol/L (98-106); Hematocrit-VBG 44 % (42.0-52.0); Hemoglobin (Hb) 15.1 g/dL (13.1-17.2); Potassium (VBG) 3.98 mmol/L (3.70-5.30); Sodium 136 mmol/L (133-146)
[2024-12-02] MEDS ORDERED: cefTRIAXone (ROCEPHIN) 2 GM VIAL ONE (21:24)
[2024-12-02] MEDS ORDERED: Azithromycin 500 MG VIAL ONE (21:24)
[2024-12-02] MEDS ORDERED: Albuterol 2.5 MG (0.5 mL) NEB ONE (21:30)
[2024-12-02] MEDS ORDERED: Albuterol 2.5 MG (3 mL) NEB ONE ×2 (21:30→21:31)
[2024-12-02 22:30] LABS: Bacteria/HPF None Seen HPF (None Seen); CAUTI Indications for Culture Fever or rigors; Glucose, Urine (Dipstick) Normal (Negative); Leukocyte Negative Leu/uL (Negative); Protein, Urine (Dipstick) Negative (Neg-Trace); RBC/HPF 0-3 HPF (0-3); Specific Gravity, Urine 1.012 (1.002-1.036); WBC/HPF 0-3 HPF (0-3)
[2024-12-02 22:33] LABS: Urine Culture Reflex No No
[2024-12-02] MEDS ORDERED: Acetaminophen 325 MG TAB PO PRN (23:45)
[2024-12-02] MEDS ORDERED: Ondansetron PF 4 MG/2 ML Vial IVP PRN (23:45)
[2024-12-03] MEDS ORDERED: HYDROcodone/Acetaminophen 10/325 mg Tablet ONE (00:01)
[2024-12-03 01:14] VITALS: BMI 19.8
[2024-12-03 04:47] LABS: Actual Bicarbonate (HCO3v) 20.4 mEq/L (22-28); Base Excess -3.7 mEq/L (-2.0 to +3.0); Calcium, Ionized (venous) 1.21 mmol/L (1.16-1.32); Chloride (VBG) 107 mmol/L (98-106); Hematocrit-VBG 33 % (42.0-52.0); Hemoglobin (Hb) 11.1 g/dL (13.1-17.2); Potassium (VBG) 3.42 mmol/L (3.70-5.30); Sodium 138 mmol/L (133-146)
[2024-12-03 04:59] LABS: #Basophils 0.03 10x3/uL (0.0-0.2); #Eosinophils Less than 0.03 10x3/uL (0.0-0.7); #Monocytes 0.27 10x3/uL (0.11-0.59); #Neutrophils 11.75 10x3/uL (1.40-6.50); %Basophils 0.2 % (0.0-1.0); %Eosinophils 0.0 % (0.0-10.0); %Lymphocytes 5.2 % (21.0-51.0); %Monocytes 2.1 % (0.0-10.0); %Neutrophils 90.8 % (42.0-75.0); Hematocrit 30.3 % (42.0-52.0); Hemoglobin 10.0 g/dL (14.0-18.0); Mean Corpuscular Hemoglobin 31.0 pg (27.0-31.0); Mean Corpuscular Volume 93.8 fL (78.0-98.0); Platelet Count 222 10x3/uL (130-400); Red Blood Cell (RBC) Count 3.23 mill/uL (4.70-6.10); White Blood Cell (WBC) Count 12.94 10x3/uL (4.8-10.8)
[2024-12-03 05:20] LABS: Anion Gap 15 mmol/L (10-20); BUN (Urea Nitrogen) 13 mg/dL (8.4-25.7); Calc. Creatinine Clearance 98 mL/min (70-130); Calcium 9.1 mg/dL (7.8-10.44); Carbon Dioxide 20 mmol/L (23-31); Chloride 108 mmol/L (98-107); Glucose 201 mg/dL (80-115); Potassium 3.4 mmol/L (3.5-5.1); Sodium 140 mmol/L (136-145)
[2024-12-03] MEDS: Enoxaparin 40 MG (0.4 mL) SYRINGE SC SCH (08:48)
[2024-12-03] MEDS ORDERED: guaiFENesin/Codeine 200 mg/20 mg 10 ml Cup PO PRN (09:18)
[2024-12-03] MEDS: REMDESIVIR 200 MG in Sodium Chloride 0.9% 250 ML 210 ML IV SCH (11:43)
[2024-12-03] MEDS: HYDROcodone/Acetaminophen 7.5/325 mg Tablet PO PRN (11:52)
[2024-12-03] MEDS: Azithromycin 500 MG in Sodium Chloride 0.9% 250 ML 250 ML IVPB SCH (13:32)
[2024-12-03] MEDS ORDERED: cefTRIAXone\\ROCEPHIN 2 GM in Sodium Chloride 0.9% 100 ML IVPB SCH (14:00)
[2024-12-03] MEDS: Albuterol 2.5 MG (3 mL) NEB NEB SCH (14:57)
[2024-12-03 16:27] VITALS: BMI 19.8
[2024-12-03] MEDS ORDERED: Albuterol 200 PUFF (6.7GM INHALER) INH PRN (18:54)
[2024-12-03] MEDS: cefTRIAXone\\ROCEPHIN 2 GM in Sodium Chloride 0.9% 100 ML IVPB SCH (22:36)
[2024-12-04 05:13] LABS: #Basophils 0.03 10x3/uL (0.0-0.2); #Eosinophils Less than 0.03 10x3/uL (0.0-0.7); #Monocytes 0.82 10x3/uL (0.11-0.59); #Neutrophils 17.86 10x3/uL (1.40-6.50); %Basophils 0.1 % (0.0-1.0); %Eosinophils 0.1 % (0.0-10.0); %Lymphocytes 5.9 % (21.0-51.0); %Monocytes 4.0 % (0.0-10.0); %Neutrophils 86.5 % (42.0-75.0); Hematocrit 31.6 % (42.0-52.0); Hemoglobin 10.0 g/dL (14.0-18.0); Mean Corpuscular Hemoglobin 31.0 pg (27.0-31.0); Mean Corpuscular Volume 97.8 fL (78.0-98.0); Platelet Count 261 10x3/uL (130-400); Red Blood Cell (RBC) Count 3.23 mill/uL (4.70-6.10); White Blood Cell (WBC) Count 20.65 10x3/uL (4.8-10.8)
[2024-12-04 05:31] LABS: ALT (SGPT) 14 U/L (Less than 45); AST (SGOT) 46 U/L (11-34); Albumin 2.4 g/dL (3.1-4.5); Alkaline Phosphatase 155 U/L (40-110); Anion Gap 14 mmol/L (10-20); BUN (Urea Nitrogen) 21 mg/dL (8.4-25.7); Bilirubin, Total 0.1 mg/dL (0.3-1.2); Calc. Creatinine Clearance 98 mL/min (70-130); Calcium 10.0 mg/dL (7.8-10.44); Carbon Dioxide 21 mmol/L (23-31); Chloride 112 mmol/L (98-107); Globulin 3.1 g/dL (2.4-3.5); Glucose 129 mg/dL (80-115); Potassium 4.0 mmol/L (3.5-5.1); Sodium 143 mmol/L (136-145)
[2024-12-04] MEDS: REMDESIVIR 100 MG in Sodium Chloride 0.9% 250 ML 230 ML IV SCH (10:29)
[2024-12-05] MEDS ORDERED: Albuterol 200 PUFF INH INH PRN (16:01)
[2024-12-06 05:37] LABS: ALT (SGPT) 15 U/L (Less than 45); AST (SGOT) 54 U/L (11-34); Albumin 2.3 g/dL (3.1-4.5); Alkaline Phosphatase 139 U/L (40-110); Anion Gap 16 mmol/L (10-20); BUN (Urea Nitrogen) 31 mg/dL (8.4-25.7); Bilirubin, Total 0.2 mg/dL (0.3-1.2); Calc. Creatinine Clearance 89 mL/min (70-130); Calcium 10.5 mg/dL (7.8-10.44); Carbon Dioxide 19 mmol/L (23-31); Chloride 109 mmol/L (98-107); Globulin 2.9 g/dL (2.4-3.5); Glucose 149 mg/dL (80-115); Potassium 3.3 mmol/L (3.5-5.1); Sodium 141 mmol/L (136-145)
[2024-12-06 05:44] LABS: Hematocrit 36.4 % (42.0-52.0); Hemoglobin 11.9 g/dL (14.0-18.0); Mean Corpuscular Hemoglobin 30.5 pg (27.0-31.0); Mean Corpuscular Volume 93.3 fL (78.0-98.0); Platelet Count 325 10x3/uL (130-400); Red Blood Cell (RBC) Count 3.90 mill/uL (4.70-6.10); White Blood Cell (WBC) Count 23.96 10x3/uL (4.8-10.8)
[2024-12-06] MEDS: PNEUMOC 20-VAL CONJ-DIP CRM/PF 0.5 ML SYRINGE IM ONE (08:36)
[2024-12-07 05:16] LABS: Hematocrit 35.2 % (42.0-52.0); Hemoglobin 11.7 g/dL (14.0-18.0); Mean Corpuscular Hemoglobin 30.5 pg (27.0-31.0); Mean Corpuscular Volume 91.7 fL (78.0-98.0); Platelet Count 314 10x3/uL (130-400); Red Blood Cell (RBC) Count 3.84 mill/uL (4.70-6.10); White Blood Cell (WBC) Count 21.11 10x3/uL (4.8-10.8)
[2024-12-07 05:24] LABS: ALT (SGPT) 14 U/L (Less than 45); AST (SGOT) 71 U/L (11-34); Albumin 2.3 g/dL (3.1-4.5); Alkaline Phosphatase 123 U/L (40-110); Anion Gap 16 mmol/L (10-20); BUN (Urea Nitrogen) 25 mg/dL (8.4-25.7); Bilirubin, Total 0.3 mg/dL (0.3-1.2); Calc. Creatinine Clearance 115 mL/min (70-130); Calcium 10.3 mg/dL (7.8-10.44); Carbon Dioxide 22 mmol/L (23-31); Chloride 107 mmol/L (98-107); Globulin 2.8 g/dL (2.4-3.5); Glucose 106 mg/dL (80-115); Potassium 3.4 mmol/L (3.5-5.1); Sodium 142 mmol/L (136-145)
[2024-12-07 07:55] LABS: Macrocytosis SLIGHT = 6-15 cells HPF (0-5); Nucleated RBC (Manual Ct) 1 % (0); Platelet Adequacy Comment Platelets Normal; Polychromasia SLIGHT = 2-3 cells HPF (0-2); Smudge Cells 3.9 %
[2024-12-08 07:27] LABS: ALT (SGPT) 12 U/L (Less than 45); AST (SGOT) 61 U/L (11-34); Albumin 2.3 g/dL (3.1-4.5); Alkaline Phosphatase 112 U/L (40-110); Anion Gap 12 mmol/L (10-20); BUN (Urea Nitrogen) 30 mg/dL (8.4-25.7); Bilirubin, Total 0.3 mg/dL (0.3-1.2); Calc. Creatinine Clearance 115 mL/min (70-130); Calcium 9.1 mg/dL (7.8-10.44); Carbon Dioxide 24 mmol/L (23-31); Chloride 104 mmol/L (98-107); Globulin 2.7 g/dL (2.4-3.5); Glucose 118 mg/dL (80-115); Potassium 3.7 mmol/L (3.5-5.1); Sodium 136 mmol/L (136-145)
[2024-12-08 07:34] LABS: Hematocrit 35.3 % (42.0-52.0); Hemoglobin 11.7 g/dL (14.0-18.0); Mean Corpuscular Hemoglobin 31.0 pg (27.0-31.0); Mean Corpuscular Volume 93.6 fL (78.0-98.0); Platelet Count 275 10x3/uL (130-400); Red Blood Cell (RBC) Count 3.77 mill/uL (4.70-6.10); White Blood Cell (WBC) Count 23.76 10x3/uL (4.8-10.8)
[2024-12-08 08:03] LABS: Anisocytosis SLIGHT = 6-15 cells HPF (0-5); Macrocytosis SLIGHT = 6-15 cells HPF (0-5); Nucleated RBC (Manual Ct) 1 % (0); Platelet Adequacy Comment Platelets Normal; Polychromasia SLIGHT = 2-3 cells HPF (0-2); RBC Morphology Within Normal Limits
[2024-12-09] MEDS ORDERED: CEFAZOLIN 2 GM VIAL ONE (08:02)
[2024-12-09] MEDS ORDERED: PROPOFOL 20 ML ONE (08:16)
[2024-12-09] MEDS ORDERED: Lidocaine 1% PF 5 ML VIAL ONE (08:17)
[2024-12-09] MEDS ORDERED: Ondansetron PF 4 MG/2 ML Vial ONE (08:17)
[2024-12-09] MEDS ORDERED: fentaNYL PF 100 MCG/2 ML SYRINGE ONE (08:48)
[2024-12-09] MEDS ORDERED: PHENYLEPHRINE-NS 100 MCG/ML 10 ML SYRINGE ONE (09:17)
[2024-12-09] MEDS: Guaifenesin DM 100-10/5 ML UDCUP PO PRN (17:10)
[2024-12-10 06:13] LABS: Hematocrit 33.5 % (42.0-52.0); Hemoglobin 11.0 g/dL (14.0-18.0); Mean Corpuscular Hemoglobin 31.0 pg (27.0-31.0); Mean Corpuscular Volume 94.4 fL (78.0-98.0); Platelet Count 211 10x3/uL (130-400); Red Blood Cell (RBC) Count 3.55 mill/uL (4.70-6.10); White Blood Cell (WBC) Count 25.45 10x3/uL (4.8-10.8)
[2024-12-10 06:30] LABS: Anion Gap 13 mmol/L (10-20); BUN (Urea Nitrogen) 19 mg/dL (8.4-25.7); Calc. Creatinine Clearance 139 mL/min (70-130); Calcium 8.0 mg/dL (7.8-10.44); Carbon Dioxide 25 mmol/L (23-31); Chloride 103 mmol/L (98-107); Glucose 116 mg/dL (80-115); Potassium 4.2 mmol/L (3.5-5.1); Sodium 137 mmol/L (136-145)
[2024-12-10 08:29] LABS: Platelet Adequacy Comment Platelets Normal; Polychromasia SLIGHT = 2-3 cells HPF (0-2); Smudge Cells 3.0 %
[2024-12-12] MEDS: predniSONE 20 MG TAB PO SCH (08:55)
[2024-12-12] MEDS: cefTRIAXone\\ROCEPHIN 2 GM in Sodium Chloride 0.9% 100 ML IVPB SCH (21:03)
[2024-12-13] MEDS: oxyCODONE 5 MG TAB PO PRN (22:37)
[2024-12-14] MEDS: oxyCODONE 5 MG TAB PO PRN (12:10)
[2024-12-15 07:22] VITALS: TEMP 97.6
[2024-12-15 14:02] VITALS: BP 123/87
== END 2024-12-15 14:04 | disposition hospice, home (50) | DRG 853 ==
LOC: ERS 20:14 → 2NO 23:31 → T4-A 12-07 15:02
PROVIDERS: ADMIT Internal Medicine; ATTEND Hospitalist
PROC: 3E03329 Introduction of Other Anti-infective into Peripheral Vein, Percutaneous Approach (ICD-10-PCS; 2024-12-03)
PROC: 0QH606Z Insertion of Intramedullary Internal Fixation Device into Right Upper Femur, Open Approach (ICD-10-PCS; principal; 2024-12-09)
DX: A41.9 Sepsis, unspecified organism (principal); J12.82 Pneumonia due to coronavirus disease 2019; U07.1 COVID-19; J96.01 Acute respiratory failure with hypoxia; C34.90 Malignant neoplasm of unspecified part of unspecified bronchus or lung; E87.20 Acidosis, unspecified; C78.7 Secondary malignant neoplasm of liver and intrahepatic bile duct; C78.1 Secondary malignant neoplasm of mediastinum; C79.31 Secondary malignant neoplasm of brain; C79.71 Secondary malignant neoplasm of right adrenal gland; E44.0 Moderate protein-calorie malnutrition; M84.451A Pathological fracture, right femur, initial encounter for fracture; I82.619 Acute embolism and thrombosis of superficial veins of unspecified upper extremity; C79.51 Secondary malignant neoplasm of bone; Z51.5 Encounter for palliative care; Z92.3 Personal history of irradiation; Z88.5 Allergy status to narcotic agent; Z98.890 Other specified postprocedural states; Z87.891 Personal history of nicotine dependence; R13.10 Dysphagia, unspecified; D72.829 Elevated white blood cell count, unspecified; R00.0 Tachycardia, unspecified; Z85.038 Personal history of other malignant neoplasm of large intestine; Z90.49 Acquired absence of other specified parts of digestive tract; Z79.899 Other long term (current) drug therapy; R53.81 Other malaise; G89.29 Other chronic pain; J40 Bronchitis, not specified as acute or chronic; E86.0 Dehydration; E83.52 Hypercalcemia
CPT/HCPCS: 36415; 36416; 71045; 71275; 72170; 80048; 80053; 81001; 82805; 83605; 83735; 83880; 84484; 85025; 85610; 85730; 86850; 86900; 86901; 87040; 87086; 87426; 88304; 88307; 88311; 88341; 88342; 93005; 93010; 94640; 94644; 94760; 96365; 96366; 96367; 96375; C1713; J0248; J0456; J0696; J1100; J1650; J2704; J2919; J3475; J3489; J7030; J7050; J7120; J7512; J7611; Q9967